=== PATIENT | female | born 1955 | race Two or more races ===

== ENCOUNTER 2025-03-08 13:17 | Emergency (ER) | payer OTHER, MEDICAID ==
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
[2025-03-08] MEDS: ACETAMINOPHEN/CODEINE#3 (300/30mg) TAB PO ONE (14:40)
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
[2025-03-08 15:06] VITALS: BP 176/73; PULSE 72; RESP 16; TEMP 98.9; O2SAT 96
[2025-03-08] MEDS ORDERED: IBUP-1456 PO (15:09)
[2025-03-08] MEDS ORDERED: METH-1182 PO (15:09)
== END 2025-03-08 15:14 | disposition home or self-care (01) ==
LOC: ER 13:17
DX: S16.1XXA Strain of muscle, fascia and tendon at neck level, initial encounter (principal); S39.012A Strain of muscle, fascia and tendon of lower back, initial encounter; Z91.040 Latex allergy status; S63.592A Other specified sprain of left wrist, initial encounter; S83.8X2A Sprain of other specified parts of left knee, initial encounter; V49.88XA Car occupant (driver) (passenger) injured in other specified transport accidents, initial encounter; Y93.I9 Activity, other involving external motion; Y92.488 Other paved roadways as the place of occurrence of the external cause; Y99.8 Other external cause status
CPT/HCPCS: 72040; 72100; 73110; 73560